=== PATIENT | male | born 1990 | race Two or more races ===

== ENCOUNTER 2017-09-22 21:08 | Emergency (ER) | payer OTHER ==
[~2017-09-22] VITALS: Ht 170.2 cm; Wt 95.2 kg
[2017-09-22 21:15] VITALS: Ht 170.2 cm; Wt 95.2 kg
[2017-09-23 01:06] VITALS: BP 136/64
== END 2017-09-23 01:06 | disposition home or self-care (01) ==
LOC: ED 21:08
DX: S06.0X9A Concussion with loss of consciousness of unspecified duration, initial encounter (principal); S00.83XA Contusion of other part of head, initial encounter; R10.11 Right upper quadrant pain; Z88.5 Allergy status to narcotic agent; W21.07XA Struck by softball, initial encounter; Y93.89 Activity, other specified; Y92.89 Other specified places as the place of occurrence of the external cause; Y99.8 Other external cause status
CPT/HCPCS: J1885; Q0162